=== PATIENT | male | born 1995 | race Two or more races ===

== ENCOUNTER 2022-02-18 17:33 | Emergency (ER) | payer SELFPAY ==
[~2022-02-18] VITALS: Ht 167.6 cm; Wt 79.5 kg
[2022-02-18 17:47] VITALS: BP 147/63
== END 2022-02-18 19:25 | disposition home or self-care (01) ==
LOC: ER 17:34
DX: S01.111A Laceration without foreign body of right eyelid and periocular area, initial encounter (principal); V98.8XXA Other specified transport accidents, initial encounter; Y93.89 Activity, other specified; Y92.89 Other specified places as the place of occurrence of the external cause; Y99.8 Other external cause status
CPT/HCPCS: 12011; 70450; 99284; J7030; A6449

== ENCOUNTER 2023-04-21 09:28 | Inpatient (IN) | payer MEDICAID ==
[~2023-04-21] VITALS: Ht 167.6 cm; Wt 74.8 kg
[2023-04-21] VITALS (14 sets, daily range): BP systolic 117–149; BP diastolic 50–92; PULSE 49–72; RESP 13–20; TEMP 97.9–98.3; O2SAT 95–100
[~2023-04-21 09:28] MED LIST: CEPH500C2 PO; COLLAGEN; MILK175C5; MULT-955 PO; OMEG-5 PO; cefazolin 2gm/D5W 100mL 100 ML IV ONE; famotidine 20mg tablet PO ONE; ringers solution, lacted 1,000 ML IV SCH
[2023-04-21 11:32] LABS: ALBUMIN 3.8 G/DL (3.4-5.0); ALKALINE PHOSPHATASE 62 IU/L (46-116); CALCIUM 9.1 MG/DL (8.5-10.1); PRE OP ALT 53 U/L (30-65); PRE OP AST 30 U/L (10-37); PRE OP BILIRUB, TOTAL 0.6 MG/DL (0.0-1.0); TOTAL CARBON DIOXIDE 27.4 MMOL/L (24-32); TOTAL PROTEIN 7.6 G/DL (6.4-8.2)
[2023-04-21 11:35] LABS: BLOOD UREA NITROGEN 16 MG/DL (7-18); BUN/CREATININE RATIO 15.1 (10.0-20.0); CHLORIDE 103 MMOL/L (99-107); CREATININE 1.06 MG/DL (0.60-1.10); PRE OP ANION GAP 7 (8-16); PRE OP GLUCOSE 104 MG/DL (70-104); PRE OP SODIUM 137 MMOL/L (135-145); eCRCL 93 ML/MIN; eGFR 83 ML/MIN
[2023-04-21] MEDS ORDERED: acetaminophen 325mg tablet PO PRN (17:50)
[2023-04-21] MEDS ORDERED: bisacodyl 10mg suppository rectal RC PRN (17:50)
[2023-04-21] MEDS ORDERED: diphenhydrAMINE 25mg capsule PO PRN (17:50)
[2023-04-21] MEDS ORDERED: HYDROcodone/acetaminophen 10/325mg tab PO PRN ×2 (17:50)
[2023-04-21] MEDS ORDERED: naloxone 0.4 mg/ml inj IV PRN (17:50)
[2023-04-21] MEDS ORDERED: ondansetron/PF 4mg/2ml inj IV PRN ×2 (17:50→19:00)
[2023-04-21] MEDS ORDERED: magnesium hydroxide 30ml (MOM) UD suspension PO PRN (17:50)
[2023-04-21] MEDS ORDERED: fentaNYL/PF 50MCG/1 ML 2ML syringe ONE (18:17)
[2023-04-21] MEDS ORDERED: midazolam 1 mg/ML 2ml injection ONE (18:17)
[2023-04-21] MEDS ORDERED: propofol inj 20 ML IV ONE (18:17)
[2023-04-21] MEDS ORDERED: sevoflurane 250ml liquid IH ONE (18:18)
[2023-04-21] MEDS ORDERED: vancomycin 1,000mg inj ONE (19:00)
[2023-04-21] MEDS ORDERED: morphine 4 MG/ML inj SYRINge IV PRN (19:00)
[2023-04-21] MEDS ORDERED: meperidine/PF 25mg/ml syringe IV PRN ×3 (19:00)
[2023-04-21] MEDS ORDERED: morphine 2 MG/ML inj. syringe IV PRN (19:00)
[2023-04-21] MEDS ORDERED: ringers solution, lacted 1,000 ML IV SCH (19:00)
[2023-04-21] MEDS ORDERED: proCHLORperazine 10 MG/2 ml inj IV PRN (19:00)
[2023-04-21] MEDS ORDERED: Thrombin (Bovine) 5,000 unit vial TP ONE ×2 (19:15→19:24)
[2023-04-21] MEDS ORDERED: gelatin sponge, absorbable (Gelfoam 100) sponge TP ONE (19:15)
[2023-04-21] MEDS ORDERED: gelatin sponge, absorbable (Gelfoam-100 compressed) sponge TP ONE (19:25)
[2023-04-21] MEDS ORDERED: acetaminophen 1,000mg/100ml IV 100 ML IV ONE (19:31)
--- NOTE | 2023-04-21 19:57 | NUR ---
Received from OR via [facility], accompanied by Anesthesiologist María and report given by Anesthesiolgist. Pt sleepy but responding appropriately. SM 10L 02saturation 100%. Right arm incision with gauze, daysi bandange, and arm sling. CDI.
--- NOTE | 2023-04-21 20:27 | NUR ---
Pt transferred to floor, report given to Aiyana. Bed low, locked position, call light in reach. 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 Pt tolerating oral fluids well. VSS.
[2023-04-21] MEDS: potassium cl 20mEq in 1/2 NS 1,000 ML IV SCH (20:50)
--- NOTE | 2023-04-21 20:52 | NUR ---
pt arrived to [address]. oriented to room, call light and activity. pt is painful, sling adjusted and floated on pillow. norco was just given. VSS, call light in reach. pt declined any CL or food at this time. powderpack applied to elbow
[2023-04-21] MEDS: vancomycin/NS 1 GM ADD-VANTAGE 250 ML IV SCH (21:35)
[2023-04-22] VITALS: BP 103/40; PULSE 50; O2SAT 93
[2023-04-22 02:00] VITALS: BP 103/40; PULSE 53; RESP 13; TEMP 98.4; O2SAT 98
[2023-04-22 06:00] VITALS: BP 121/60; PULSE 60; RESP 13; TEMP 97.6; O2SAT 97
[2023-04-22 06:19] LABS: BASOPHILS % (AUTO) 0.5 % (0-1); EOSINOPHILS # (AUTO) 0.2 X10'3 (0-0.9); EOSINOPHILS % (AUTO) 2.8 % (0-6); HEMATOCRIT 42.7 % (42.0-52.0); HEMOGLOBIN 14.2 g/dl (14.0-17.9); LYMPHOCYTES # (AUTO) 1.9 X10'3 (1.1-4.8); LYMPHOCYTES % (AUTO) 23.7 % (21-51); MEAN CORPUSCULAR HEMOGLOBIN 30.9 PG (27.0-31.0); MEAN CORPUSCULAR HGB CONC 33.3 g/dL (33.0-36.5); MEAN CORPUSCULAR VOLUME 92.8 FL (78-98); MEAN PLATELET VOLUME 7.5 FL (7.4-10.4); MONOCYTES # (AUTO) 0.7 X10'3 (0-0.9); MONOCYTES % (AUTO) 8.5 % (2-12); NEUTROPHILS # (AUTO) 5.1 X10'3 (1.8-7.7); NEUTROPHILS % (AUTO) 64.5 % (42-75); PLATELET COUNT 238 X10'3 (140-440); RED CELL DISTRIBUTION WIDTH 13.2 % (11.5-14.5); WHITE BLOOD COUNT 7.8 X10'3 (4.5-11.0)
--- NOTE | 2023-04-22 06:28 | NUR ---
reported to days. noted pt resting, playing on phone. no numbnes, no drainage, no pain medicine requested
[2023-04-22] MEDS: vancomycin/NS 1 GM ADD-VANTAGE 250 ML IV SCH (06:42)
[2023-04-22 06:56] LABS: ANION GAP 7 (8-16); CHLORIDE 108 MMOL/L (99-107); SODIUM 142 MMOL/L (135-145); TOTAL CARBON DIOXIDE 26.9 MMOL/L (24-32)
[2023-04-22 08:00] VITALS: RESP 13; O2SAT 97
[2023-04-22 10:00] VITALS: BP 132/55; PULSE 58; RESP 18; TEMP 97.6; O2SAT 96
[2023-04-22] MEDS ORDERED: CefTRIAXone 2gm/D5W 50ml BAG 50 ML IV SCH (10:20)
[2023-04-22] MEDS: potassium cl 20mEq in 1/2 NS 1,000 ML IV SCH ×2 (10:22→11:00)
--- NOTE | 2023-04-22 15:51 | NUR ---
Patient discharged home, personal belongings sent with, questions answered including post discharge instructions for IV ABX. Midline CDI at the time of discharge. PIV was discontinued, tip intact. Patient alert and appropriate at the time of discharge.
== END 2023-04-22 15:04 | disposition home health service (06) | DRG 711 ==
LOC: PAS 09:28 → OBSVTOIN 17:58 → ORTHO 4S 17:58 → INTOOBSV 04-22 08:23 → OBSVTOIN 04-22 08:23
PROVIDERS: ADMIT Specialist; ATTEND Specialist
PROC: 05HC33Z Insertion of Infusion Device into Left Basilic Vein, Percutaneous Approach (ICD-10-PCS; 2023-04-21)
PROC: B54NZZA Ultrasonography of Left Upper Extremity Veins, Guidance (ICD-10-PCS; 2023-04-21)
PROC: 0LD50ZZ Extraction of Right Lower Arm and Wrist Tendon, Open Approach (ICD-10-PCS; principal; 2023-04-21 18:18)
DX: T81.49XA Infection following a procedure, other surgical site, initial encounter (principal); S46.211A Strain of muscle, fascia and tendon of other parts of biceps, right arm, initial encounter; Y83.8 Other surgical procedures as the cause of abnormal reaction of the patient, or of later complication, without mention of misadventure at the time of the procedure; Y92.89 Other specified places as the place of occurrence of the external cause
CPT/HCPCS: 36410; 36415; 76942; 80051; 80053; 82948; 85025; 87070; 87075; 97161; A4215; A4565; A4618; A6222; A6253; A6449; A6455; A7000; C1751; G0378; J0131; J0690; J0696; J2250; J2704; J3010; J3370; J3480; J7120